=== PATIENT | female | born 1950 ===

== ENCOUNTER 2023-05-25 23:24 | Emergency (ER) | payer MEDICARE ==
[~2023-05-25] VITALS: Ht 167.6 cm; Wt 74.8 kg
[2023-05-25] MEDS ORDERED: LATA.005SO BOTHEYES (23:36)
[2023-05-25] MEDS ORDERED: EUTHYROX50 MCG (23:36)
[2023-05-26 00:06] LABS: BASOPHILS ABSOLUTE AUTO 0.07 K/mm3 (0.00-0.23); BASOPHILS PERCENT AUTO 2 % (0-2); EOSINOPHILS ABSOLUTE AUTO 0.16 K/mm3 (0.00-0.68); EOSINOPHILS PERCENT AUTO 3 % (0-6); Hematocrit 41.2 % (33.0-51.0); Hemoglobin 13.7 g/dL (11.5-16.0); IMMATURE GRAN ABSOLUTE AUTO 0.04 K/mm3 (0.00-0.10); IMMATURE GRAN PERCENT AUTO 1 % (0-1); LYMPHOCYTES ABSOLUTE AUTO 2.43 K/mm3 (0.84-5.20); LYMPHOCYTES PERCENT AUTO 52 % (21-46); MONOCYTES PERCENT AUTO 6 % (4-13); Mean Corpuscular HGB 32.9 pg (26.0-34.0); Mean Corpuscular HGB Conc 33.3 g/dL (31.5-36.5); Mean Corpuscular Volume 99 fL (80-100); NEUTROPHILS ABSOLUTE AUTO 1.66 K/mm3 (1.96-9.15); NEUTROPHILS PERCENT AUTO 36 % (41-73); RDW Coefficient Variation 12.2 % (11.7-14.2); RDW Standard Deviation 44.4 fL (35.1-46.3); Red Blood Cell Count 4.16 M/mm3 (3.80-5.20); White Blood Cell Count 4.66 K/mm3 (4.00-11.30)
[2023-05-26 00:08] LABS: Mean Platelet Volume 10.2 fL (9.1-12.4)
[2023-05-26 00:15] LABS: D-Dimer, Quantitative 0.43 mg/L FEU (0.00-0.52); Magnesium, Blood 2.2 mg/dL (1.6-2.4)
[2023-05-26 00:17] LABS: Albumin, Blood 3.5 g/dL (3.4-5.0); Albumin/Globulin Ratio 0.9 (0.8-1.8); Bilirubin, Total 0.2 mg/dL (0.1-1.0); Bun/Creatinine Ratio 23.5 (12.0-20.0); Calcium, Blood 8.5 mg/dL (8.5-10.1); Creatinine, Blood 0.68 mg/dL (0.40-1.00); Globulin, Blood 3.8 g/dL (2.2-4.0); Phosphorus, Blood 3.6 mg/dL (2.5-4.9); Potassium, Blood 3.9 mmol/L (3.5-5.5); Thyroid Stimulating Hormone 0.703 uIU/mL (0.360-4.800); Total Protein, Blood 7.3 g/dL (6.4-8.2)
[2023-05-26 00:49] LABS: Platelet Count 128 K/mm3 (150-400)
[2023-05-26 01:01] LABS: Source, Urine Clean Catch
[2023-05-26 01:06] LABS: Appearance, Urine Clear (Clear); Bilirubin, Urine Neg (Neg); Blood, Urine Neg (Neg); Glucose Qualitative, Urine Neg (Neg); Ketones, Urine Neg (Neg); Leukocyte Esterase, Urine Neg (Neg); Nitrite, Urine Neg (Neg); Protein, Urine Neg (Neg); Urobilinogen, Urine NORM (Normal)
[2023-05-26 01:18] LABS: Color, Urine Pale Yellow (P-Yellow)
[2023-05-26 03:00] VITALS: BP 111/70
[2023-05-26] MEDS ORDERED: XARELTO20 MG PO (03:16)
[2023-05-26] MEDS ORDERED: METO25 PO (03:16)
== END 2023-05-26 03:30 | disposition home or self-care (01) ==
LOC: ER 23:24
PROVIDERS: Emergency Medicine
DX: I48.91 Unspecified atrial fibrillation (principal); E86.0 Dehydration; E03.9 Hypothyroidism, unspecified
CPT/HCPCS: 71045; 80053; 81003; 83605; 83735; 84100; 84443; 84484; 85025; 85379; 85730; 93005; 93010; 96365; 96376; 99285-25; A9270